=== PATIENT | female | born 1950 | race Caucasian/White ===

== ENCOUNTER → 2017-04-27 | Outpatient (CLI) | payer MEDICARE, BC ==
[~2017-04-27] MED LIST: ALLEGRA 180MG180 MG PO; ALLEGRA30 MG PO; ASPIRIN 32325 MG/TAB PO; ASPIRIN E.C. 8181 MG PO; CARDI-OMEGA1000 MG PO; CELEXA 20MG20 MG/TAB PO; CELEXA10 MG PO; CINNAMON500 MG PO; COZAAR 50MG50 MG/TAB PO; CRANBERRY400 MG PO; GARLIC OIL1 MG PO; OSTEO-BI-FLEX 21 TAB PO; THERAGRAN1 TA1 PO; ULTRAM 50MG TAB50 MG PO; VITAMIN B-1000 MCG/T PO
== END ==
LOC: MC.RAD 11:08
DX: Z12.31 Encounter for screening mammogram for malignant neoplasm of breast (principal)

== ENCOUNTER → 2018-01-29 | Outpatient (CLI) | payer MEDICARE, BC | LOC: COL.RAD 13:23 | DX: M16.11 Unilateral primary osteoarthritis, right hip (principal) | CPT/HCPCS: J3301; Q9967 ==

== ENCOUNTER → 2018-10-01 | Outpatient (CLI) | payer MEDICARE, BC | LOC: COL.RAD 08:00 | DX: M25.511 Pain in right shoulder (principal) | CPT/HCPCS: J3301; Q9967 ==

== ENCOUNTER → 2020-06-26 | Outpatient (CLI) | payer MEDICARE, BC | LOC: MC.RAD 08:30 | DX: Z12.31 Encounter for screening mammogram for malignant neoplasm of breast (principal) ==